=== PATIENT | female | born 1965 | race Caucasian/White ===

== ENCOUNTER 2020-12-19 14:43 | Emergency (ER) | payer BC ==
[~2020-12-19] VITALS: Ht 157.5 cm; Wt 84.4 kg
[2020-12-19] MEDS ORDERED: SODIUM CHLORIDE 0.9% 50ML 50 ML ONE (15:43)
[2020-12-19] MEDS ORDERED: IOPAMIDOL 370 MG/ML 200 ML INFUS..BTL INJ ONE (15:43)
== END 2020-12-19 16:51 | disposition home or self-care (01) ==
LOC: FSED 15:15
DX: R10.32 Left lower quadrant pain (principal); N61.1 Abscess of the breast and nipple; K57.32 Diverticulitis of large intestine without perforation or abscess without bleeding; E11.9 Type 2 diabetes mellitus without complications; E03.9 Hypothyroidism, unspecified
CPT/HCPCS: 74177; 80053; 81003; 85025; 99284; Q9967

== ENCOUNTER → 2020-12-24 | Outpatient (CLI) | payer BC | LOC: WCC 08:57 | PROVIDERS: ATTEND Plastic Surgery | DX: T81.89XA Other complications of procedures, not elsewhere classified, initial encounter (principal); Y83.8 Other surgical procedures as the cause of abnormal reaction of the patient, or of later complication, without mention of misadventure at the time of the procedure; E11.65 Type 2 diabetes mellitus with hyperglycemia; D50.9 Iron deficiency anemia, unspecified; E03.8 Other specified hypothyroidism; I95.9 Hypotension, unspecified; Q61.3 Polycystic kidney, unspecified ==

== ENCOUNTER → 2020-12-27 | Outpatient (CLI) | payer BC ==
[~2020-12-27] MED LIST: LIDOCAINE VISC 2% SOLN 15 ML UDC ONE
== END ==
LOC: WCC 13:34
PROVIDERS: ATTEND Family Medicine Adult Medicine
DX: T81.89XA Other complications of procedures, not elsewhere classified, initial encounter (principal); Y83.8 Other surgical procedures as the cause of abnormal reaction of the patient, or of later complication, without mention of misadventure at the time of the procedure; E11.65 Type 2 diabetes mellitus with hyperglycemia; D50.9 Iron deficiency anemia, unspecified; Q61.3 Polycystic kidney, unspecified; E03.8 Other specified hypothyroidism; I95.9 Hypotension, unspecified
CPT/HCPCS: 36415; 82948; 87071; 87075; 87205

== ENCOUNTER → 2020-12-31 | Outpatient (CLI) | payer BC | LOC: WCC 09:49 | PROVIDERS: ATTEND Family Medicine Adult Medicine | DX: T81.89XA Other complications of procedures, not elsewhere classified, initial encounter (principal); Y83.8 Other surgical procedures as the cause of abnormal reaction of the patient, or of later complication, without mention of misadventure at the time of the procedure; E11.65 Type 2 diabetes mellitus with hyperglycemia; Q61.3 Polycystic kidney, unspecified; I95.9 Hypotension, unspecified; D50.9 Iron deficiency anemia, unspecified; E03.8 Other specified hypothyroidism ==

== ENCOUNTER → 2021-01-03 | Outpatient (CLI) | payer BC | LOC: WCC 13:04 | PROVIDERS: ATTEND Family Medicine Adult Medicine | DX: T81.89XA Other complications of procedures, not elsewhere classified, initial encounter (principal); Y83.8 Other surgical procedures as the cause of abnormal reaction of the patient, or of later complication, without mention of misadventure at the time of the procedure; E11.65 Type 2 diabetes mellitus with hyperglycemia; Q61.3 Polycystic kidney, unspecified; D50.9 Iron deficiency anemia, unspecified; I95.9 Hypotension, unspecified; E03.8 Other specified hypothyroidism ==

== ENCOUNTER → 2021-01-07 | Outpatient (CLI) | payer BC | LOC: WCC 08:23 | PROVIDERS: ATTEND Family Medicine Adult Medicine | DX: T81.89XA Other complications of procedures, not elsewhere classified, initial encounter (principal); Y83.8 Other surgical procedures as the cause of abnormal reaction of the patient, or of later complication, without mention of misadventure at the time of the procedure; E11.65 Type 2 diabetes mellitus with hyperglycemia; Q61.3 Polycystic kidney, unspecified; I95.9 Hypotension, unspecified; D50.9 Iron deficiency anemia, unspecified; E03.8 Other specified hypothyroidism ==

== ENCOUNTER → 2021-01-10 | Outpatient (CLI) | payer BC ==
[2021-01-10 17:14] LABS: MEAN CORPUSCULAR HEMOGLOBIN 25.6 pg (28-32); MEAN CORPUSCULAR HGB CONC 30.8 g/dL (31-35); MEAN CORPUSCULAR VOLUME 83.3 fL (81-99); PLATELET COUNT 195 x10e3/uL (140-360); RED BLOOD COUNT 4.68 x10e6/uL (3.6-5.1); RED CELL DISTRIBUTION WIDTH 19.9 % (11.7-14.4)
[2021-01-10 17:30] LABS: ALBUMIN 3.8 g/dL (3.5-5.0); ALBUMIN/GLOBULIN RATIO 0.8 (0.8-2.0); ANION GAP 12.9 mmol/L (8-16); CALCIUM 9.5 mg/dL (8.4-10.2); CREATININE, SERUM 0.87 mg/dL (0.57-1.11); POTASSIUM 3.9 mmol/L (3.5-5.1)
[2021-01-10 20:37] LABS: LYMPHOCYTES % (MANUAL) 48 % (19-48); MONOCYTES % (MANUAL) 13 % (3.4-9.0); NEUTROPHILS % (MANUAL) 39 % (40-74)
[2021-01-10 20:38] LABS: PLATELET ESTIMATE ADEQUATE
[2021-01-10 20:39] LABS: PLATELET MORPHOLOGY COMMENT NORMAL; RBC MORPHOLOGY COMMENT NORMAL
== END ==
LOC: WCC 14:08
PROVIDERS: ATTEND Family Medicine Adult Medicine
DX: T81.89XA Other complications of procedures, not elsewhere classified, initial encounter (principal); Y83.8 Other surgical procedures as the cause of abnormal reaction of the patient, or of later complication, without mention of misadventure at the time of the procedure; E11.65 Type 2 diabetes mellitus with hyperglycemia; D50.9 Iron deficiency anemia, unspecified; Q61.3 Polycystic kidney, unspecified; E03.8 Other specified hypothyroidism; I95.9 Hypotension, unspecified
CPT/HCPCS: 36415; 80053; 83036; 84134; 85007; 85027; 87071; 87075; 87205

== ENCOUNTER → 2021-01-14 | Outpatient (CLI) | payer BC | LOC: WCC 08:59 | PROVIDERS: ATTEND Family Medicine Adult Medicine | DX: T81.89XA Other complications of procedures, not elsewhere classified, initial encounter (principal); Y83.8 Other surgical procedures as the cause of abnormal reaction of the patient, or of later complication, without mention of misadventure at the time of the procedure; E11.65 Type 2 diabetes mellitus with hyperglycemia; Q61.3 Polycystic kidney, unspecified; D50.9 Iron deficiency anemia, unspecified; I95.9 Hypotension, unspecified; E03.8 Other specified hypothyroidism ==

== ENCOUNTER → 2021-01-17 | Outpatient (CLI) | payer BC | LOC: WCC 09:41 | PROVIDERS: ATTEND Family Medicine Adult Medicine | DX: T81.89XA Other complications of procedures, not elsewhere classified, initial encounter (principal); Y83.8 Other surgical procedures as the cause of abnormal reaction of the patient, or of later complication, without mention of misadventure at the time of the procedure; E11.65 Type 2 diabetes mellitus with hyperglycemia; D50.9 Iron deficiency anemia, unspecified; I95.9 Hypotension, unspecified; E03.8 Other specified hypothyroidism; Q61.3 Polycystic kidney, unspecified ==

== ENCOUNTER → 2021-01-21 | Outpatient (CLI) | payer BC | LOC: WCC 09:35 | PROVIDERS: ATTEND Family Medicine Adult Medicine | DX: T81.89XA Other complications of procedures, not elsewhere classified, initial encounter (principal); Y83.8 Other surgical procedures as the cause of abnormal reaction of the patient, or of later complication, without mention of misadventure at the time of the procedure; E11.65 Type 2 diabetes mellitus with hyperglycemia; D50.9 Iron deficiency anemia, unspecified; Q61.3 Polycystic kidney, unspecified; I95.9 Hypotension, unspecified; E03.8 Other specified hypothyroidism ==

== ENCOUNTER → 2021-01-24 | Outpatient (CLI) | payer BC | LOC: WCC 09:22 | PROVIDERS: ATTEND Family Medicine Adult Medicine | DX: T81.89XA Other complications of procedures, not elsewhere classified, initial encounter (principal); Y83.8 Other surgical procedures as the cause of abnormal reaction of the patient, or of later complication, without mention of misadventure at the time of the procedure; E11.65 Type 2 diabetes mellitus with hyperglycemia; Q61.3 Polycystic kidney, unspecified; D50.9 Iron deficiency anemia, unspecified; E03.8 Other specified hypothyroidism; I95.9 Hypotension, unspecified ==

== ENCOUNTER → 2021-01-28 | Outpatient (CLI) | payer BC | LOC: WCC 10:13 | PROVIDERS: ATTEND Family Medicine Adult Medicine | DX: T81.89XA Other complications of procedures, not elsewhere classified, initial encounter (principal); Y83.8 Other surgical procedures as the cause of abnormal reaction of the patient, or of later complication, without mention of misadventure at the time of the procedure; E11.65 Type 2 diabetes mellitus with hyperglycemia; Q61.3 Polycystic kidney, unspecified; D50.9 Iron deficiency anemia, unspecified; I95.9 Hypotension, unspecified; E03.8 Other specified hypothyroidism ==

== ENCOUNTER → 2021-01-31 | Outpatient (CLI) | payer BC | LOC: WCC 09:39 | PROVIDERS: ATTEND Family Medicine Adult Medicine | DX: T81.89XA Other complications of procedures, not elsewhere classified, initial encounter (principal); Y83.8 Other surgical procedures as the cause of abnormal reaction of the patient, or of later complication, without mention of misadventure at the time of the procedure; E11.65 Type 2 diabetes mellitus with hyperglycemia; D50.9 Iron deficiency anemia, unspecified; Q61.3 Polycystic kidney, unspecified; E03.8 Other specified hypothyroidism; I95.9 Hypotension, unspecified ==

== ENCOUNTER → 2021-02-04 | Outpatient (CLI) | payer BC | LOC: WCC 08:25 | PROVIDERS: ATTEND Family Medicine Adult Medicine | DX: T81.89XA Other complications of procedures, not elsewhere classified, initial encounter (principal); Y83.8 Other surgical procedures as the cause of abnormal reaction of the patient, or of later complication, without mention of misadventure at the time of the procedure; E11.65 Type 2 diabetes mellitus with hyperglycemia; D50.9 Iron deficiency anemia, unspecified; Q61.3 Polycystic kidney, unspecified; I95.9 Hypotension, unspecified; E03.8 Other specified hypothyroidism ==

== ENCOUNTER → 2021-02-07 | Outpatient (CLI) | payer BC | LOC: WCC 11:37 | PROVIDERS: ATTEND Family Medicine Adult Medicine | DX: T81.89XA Other complications of procedures, not elsewhere classified, initial encounter (principal); Y83.8 Other surgical procedures as the cause of abnormal reaction of the patient, or of later complication, without mention of misadventure at the time of the procedure; E11.65 Type 2 diabetes mellitus with hyperglycemia; D50.9 Iron deficiency anemia, unspecified; Q61.3 Polycystic kidney, unspecified; I95.9 Hypotension, unspecified; E03.8 Other specified hypothyroidism ==

== ENCOUNTER → 2021-02-11 | Outpatient (CLI) | payer BC | LOC: WCC 15:05 | PROVIDERS: ATTEND Family Medicine Adult Medicine | DX: T81.89XA Other complications of procedures, not elsewhere classified, initial encounter (principal); Y83.8 Other surgical procedures as the cause of abnormal reaction of the patient, or of later complication, without mention of misadventure at the time of the procedure; E11.65 Type 2 diabetes mellitus with hyperglycemia; D50.9 Iron deficiency anemia, unspecified; Q61.3 Polycystic kidney, unspecified; I95.9 Hypotension, unspecified; E03.8 Other specified hypothyroidism ==

== ENCOUNTER → 2021-02-14 | Outpatient (CLI) | payer BC | LOC: WCC 14:13 | PROVIDERS: ATTEND Family Medicine Adult Medicine | DX: T81.89XA Other complications of procedures, not elsewhere classified, initial encounter (principal); Y83.8 Other surgical procedures as the cause of abnormal reaction of the patient, or of later complication, without mention of misadventure at the time of the procedure; E11.65 Type 2 diabetes mellitus with hyperglycemia; D50.9 Iron deficiency anemia, unspecified; I95.9 Hypotension, unspecified; Q61.3 Polycystic kidney, unspecified; E03.8 Other specified hypothyroidism ==

== ENCOUNTER → 2021-02-18 | Outpatient (CLI) | payer BC | LOC: WCC 15:03 | PROVIDERS: ATTEND Family Medicine Adult Medicine | DX: T81.89XA Other complications of procedures, not elsewhere classified, initial encounter (principal); Y83.8 Other surgical procedures as the cause of abnormal reaction of the patient, or of later complication, without mention of misadventure at the time of the procedure; E11.65 Type 2 diabetes mellitus with hyperglycemia; D50.9 Iron deficiency anemia, unspecified; Q61.3 Polycystic kidney, unspecified; I95.9 Hypotension, unspecified; E03.8 Other specified hypothyroidism ==

== ENCOUNTER → 2021-02-21 | Outpatient (CLI) | payer BC | LOC: WCC 10:46 | PROVIDERS: ATTEND Family Medicine Adult Medicine | DX: T81.89XA Other complications of procedures, not elsewhere classified, initial encounter (principal); Y83.8 Other surgical procedures as the cause of abnormal reaction of the patient, or of later complication, without mention of misadventure at the time of the procedure; E11.65 Type 2 diabetes mellitus with hyperglycemia; D50.9 Iron deficiency anemia, unspecified; E03.8 Other specified hypothyroidism; I95.9 Hypotension, unspecified; Q61.3 Polycystic kidney, unspecified ==

== ENCOUNTER → 2021-02-25 | Outpatient (CLI) | payer BC | LOC: WCC 16:04 | PROVIDERS: ATTEND Family Medicine Adult Medicine | DX: T81.89XA Other complications of procedures, not elsewhere classified, initial encounter (principal); Y83.8 Other surgical procedures as the cause of abnormal reaction of the patient, or of later complication, without mention of misadventure at the time of the procedure; E11.65 Type 2 diabetes mellitus with hyperglycemia; Q61.3 Polycystic kidney, unspecified; I95.9 Hypotension, unspecified; D50.9 Iron deficiency anemia, unspecified; E03.8 Other specified hypothyroidism ==

== ENCOUNTER → 2021-02-28 | Outpatient (CLI) | payer BC | LOC: WCC 09:50 | PROVIDERS: ATTEND Family Medicine Adult Medicine | DX: T81.89XA Other complications of procedures, not elsewhere classified, initial encounter (principal); Y83.8 Other surgical procedures as the cause of abnormal reaction of the patient, or of later complication, without mention of misadventure at the time of the procedure; E11.65 Type 2 diabetes mellitus with hyperglycemia; D50.9 Iron deficiency anemia, unspecified; E03.8 Other specified hypothyroidism; I95.9 Hypotension, unspecified; Q61.3 Polycystic kidney, unspecified ==

== ENCOUNTER → 2021-03-05 | Outpatient (CLI) | payer BC | LOC: WCC 11:46 | PROVIDERS: ATTEND Family Medicine Adult Medicine | DX: T81.89XA Other complications of procedures, not elsewhere classified, initial encounter (principal); Y83.8 Other surgical procedures as the cause of abnormal reaction of the patient, or of later complication, without mention of misadventure at the time of the procedure; E11.65 Type 2 diabetes mellitus with hyperglycemia; Q61.3 Polycystic kidney, unspecified; I95.9 Hypotension, unspecified; D50.9 Iron deficiency anemia, unspecified; E03.8 Other specified hypothyroidism ==

== ENCOUNTER → 2021-03-07 | Outpatient (CLI) | payer BC | LOC: WCC 09:15 | PROVIDERS: ATTEND Family Medicine Adult Medicine | DX: T81.89XA Other complications of procedures, not elsewhere classified, initial encounter (principal); Y83.8 Other surgical procedures as the cause of abnormal reaction of the patient, or of later complication, without mention of misadventure at the time of the procedure; E11.65 Type 2 diabetes mellitus with hyperglycemia; Q61.3 Polycystic kidney, unspecified; D50.9 Iron deficiency anemia, unspecified; E03.8 Other specified hypothyroidism; I95.9 Hypotension, unspecified ==

== ENCOUNTER → 2021-03-11 | Outpatient (CLI) | payer BC | LOC: WCC 09:00 | PROVIDERS: ATTEND Family Medicine Adult Medicine | DX: T81.89XA Other complications of procedures, not elsewhere classified, initial encounter (principal); Y83.8 Other surgical procedures as the cause of abnormal reaction of the patient, or of later complication, without mention of misadventure at the time of the procedure; E11.65 Type 2 diabetes mellitus with hyperglycemia; Q61.3 Polycystic kidney, unspecified; D50.9 Iron deficiency anemia, unspecified; I95.9 Hypotension, unspecified; E03.8 Other specified hypothyroidism ==

== ENCOUNTER → 2021-03-14 | Outpatient (CLI) | payer BC | LOC: WCC 09:14 | PROVIDERS: ATTEND Family Medicine Adult Medicine | DX: T81.89XA Other complications of procedures, not elsewhere classified, initial encounter (principal); Y83.8 Other surgical procedures as the cause of abnormal reaction of the patient, or of later complication, without mention of misadventure at the time of the procedure; E11.65 Type 2 diabetes mellitus with hyperglycemia; D50.9 Iron deficiency anemia, unspecified; I95.9 Hypotension, unspecified; Q61.3 Polycystic kidney, unspecified; E03.8 Other specified hypothyroidism ==

== ENCOUNTER → 2021-03-18 | Outpatient (CLI) | payer BC | LOC: WCC 08:52 | PROVIDERS: ATTEND Family Medicine Adult Medicine | DX: T81.89XA Other complications of procedures, not elsewhere classified, initial encounter (principal); Y83.8 Other surgical procedures as the cause of abnormal reaction of the patient, or of later complication, without mention of misadventure at the time of the procedure; E11.65 Type 2 diabetes mellitus with hyperglycemia; Q61.3 Polycystic kidney, unspecified; I95.9 Hypotension, unspecified; D50.9 Iron deficiency anemia, unspecified; E03.8 Other specified hypothyroidism ==

== ENCOUNTER → 2021-03-21 | Outpatient (CLI) | payer BC | LOC: WCC 09:35 | PROVIDERS: ATTEND Family Medicine Adult Medicine | DX: T81.89XA Other complications of procedures, not elsewhere classified, initial encounter (principal); Y83.8 Other surgical procedures as the cause of abnormal reaction of the patient, or of later complication, without mention of misadventure at the time of the procedure; E11.65 Type 2 diabetes mellitus with hyperglycemia; D50.9 Iron deficiency anemia, unspecified; Q61.3 Polycystic kidney, unspecified; E03.8 Other specified hypothyroidism; I95.9 Hypotension, unspecified ==

== ENCOUNTER → 2021-03-25 | Outpatient (CLI) | payer BC | LOC: WCC 10:45 | PROVIDERS: ATTEND Family Medicine Adult Medicine | DX: T81.89XA Other complications of procedures, not elsewhere classified, initial encounter (principal); Y83.8 Other surgical procedures as the cause of abnormal reaction of the patient, or of later complication, without mention of misadventure at the time of the procedure; E11.65 Type 2 diabetes mellitus with hyperglycemia; Q61.3 Polycystic kidney, unspecified; I95.9 Hypotension, unspecified; D50.9 Iron deficiency anemia, unspecified; E03.8 Other specified hypothyroidism ==

== ENCOUNTER → 2021-03-28 | Outpatient (CLI) | payer BC | LOC: WCC 15:26 | PROVIDERS: ATTEND Family Medicine Adult Medicine | DX: T81.89XA Other complications of procedures, not elsewhere classified, initial encounter (principal); Y83.8 Other surgical procedures as the cause of abnormal reaction of the patient, or of later complication, without mention of misadventure at the time of the procedure; E11.65 Type 2 diabetes mellitus with hyperglycemia; D50.9 Iron deficiency anemia, unspecified; I95.9 Hypotension, unspecified; E03.8 Other specified hypothyroidism; Q61.3 Polycystic kidney, unspecified ==

== ENCOUNTER → 2021-04-01 | Outpatient (CLI) | payer BC | LOC: WCC 10:42 | PROVIDERS: ATTEND Family Medicine Adult Medicine | DX: T81.89XA Other complications of procedures, not elsewhere classified, initial encounter (principal); Y83.8 Other surgical procedures as the cause of abnormal reaction of the patient, or of later complication, without mention of misadventure at the time of the procedure; E11.65 Type 2 diabetes mellitus with hyperglycemia; Q61.3 Polycystic kidney, unspecified; I95.9 Hypotension, unspecified; D50.9 Iron deficiency anemia, unspecified; E03.8 Other specified hypothyroidism ==

== ENCOUNTER → 2021-04-04 | Outpatient (CLI) | payer BC | LOC: WCC 10:40 | PROVIDERS: ATTEND Family Medicine Adult Medicine | DX: T81.89XA Other complications of procedures, not elsewhere classified, initial encounter (principal); Y83.8 Other surgical procedures as the cause of abnormal reaction of the patient, or of later complication, without mention of misadventure at the time of the procedure; E11.65 Type 2 diabetes mellitus with hyperglycemia; Q61.3 Polycystic kidney, unspecified; D50.9 Iron deficiency anemia, unspecified; I95.9 Hypotension, unspecified; E03.8 Other specified hypothyroidism ==

== ENCOUNTER → 2021-04-08 | Outpatient (CLI) | payer BC | LOC: WCC 10:24 | PROVIDERS: ATTEND Family Medicine Adult Medicine | DX: T81.89XA Other complications of procedures, not elsewhere classified, initial encounter (principal); Y83.8 Other surgical procedures as the cause of abnormal reaction of the patient, or of later complication, without mention of misadventure at the time of the procedure; E11.65 Type 2 diabetes mellitus with hyperglycemia; Q61.3 Polycystic kidney, unspecified; I95.9 Hypotension, unspecified; D50.9 Iron deficiency anemia, unspecified; E03.8 Other specified hypothyroidism ==

== ENCOUNTER → 2021-04-11 | Outpatient (CLI) | payer BC | LOC: WCC 10:56 | PROVIDERS: ATTEND Family Medicine Adult Medicine | DX: T81.89XA Other complications of procedures, not elsewhere classified, initial encounter (principal); Y83.8 Other surgical procedures as the cause of abnormal reaction of the patient, or of later complication, without mention of misadventure at the time of the procedure; E11.65 Type 2 diabetes mellitus with hyperglycemia; D50.9 Iron deficiency anemia, unspecified; Q61.3 Polycystic kidney, unspecified; I95.9 Hypotension, unspecified; E03.8 Other specified hypothyroidism ==

== ENCOUNTER → 2021-04-15 | Outpatient (CLI) | payer BC | LOC: WCC 09:20 | PROVIDERS: ATTEND Family Medicine Adult Medicine | DX: T81.89XA Other complications of procedures, not elsewhere classified, initial encounter (principal); Y83.8 Other surgical procedures as the cause of abnormal reaction of the patient, or of later complication, without mention of misadventure at the time of the procedure; E11.65 Type 2 diabetes mellitus with hyperglycemia; Q61.3 Polycystic kidney, unspecified; D50.9 Iron deficiency anemia, unspecified; I95.9 Hypotension, unspecified; E03.8 Other specified hypothyroidism ==

== ENCOUNTER → 2021-04-18 | Outpatient (CLI) | payer BC | LOC: WCC 09:28 | PROVIDERS: ATTEND Family Medicine Adult Medicine | DX: T81.89XA Other complications of procedures, not elsewhere classified, initial encounter (principal); Y83.8 Other surgical procedures as the cause of abnormal reaction of the patient, or of later complication, without mention of misadventure at the time of the procedure; E11.65 Type 2 diabetes mellitus with hyperglycemia; D50.9 Iron deficiency anemia, unspecified; I95.9 Hypotension, unspecified; E03.8 Other specified hypothyroidism; Q61.3 Polycystic kidney, unspecified ==

== ENCOUNTER → 2021-04-22 | Outpatient (CLI) | payer BC | LOC: WCC 08:56 | PROVIDERS: ATTEND Family Medicine Adult Medicine | DX: T81.89XA Other complications of procedures, not elsewhere classified, initial encounter (principal); Y83.8 Other surgical procedures as the cause of abnormal reaction of the patient, or of later complication, without mention of misadventure at the time of the procedure; E11.65 Type 2 diabetes mellitus with hyperglycemia; Q61.3 Polycystic kidney, unspecified; I95.9 Hypotension, unspecified; D50.9 Iron deficiency anemia, unspecified; E03.8 Other specified hypothyroidism ==

== ENCOUNTER → 2021-04-25 | Outpatient (CLI) | payer BC | LOC: WCC 11:36 | PROVIDERS: ATTEND Family Medicine Adult Medicine | DX: T81.89XA Other complications of procedures, not elsewhere classified, initial encounter (principal); Y83.8 Other surgical procedures as the cause of abnormal reaction of the patient, or of later complication, without mention of misadventure at the time of the procedure; E11.65 Type 2 diabetes mellitus with hyperglycemia; Q61.3 Polycystic kidney, unspecified; D50.9 Iron deficiency anemia, unspecified; E03.8 Other specified hypothyroidism; I95.9 Hypotension, unspecified ==

== ENCOUNTER → 2021-04-29 | Outpatient (CLI) | payer BC | LOC: WCC 08:41 | PROVIDERS: ATTEND Family Medicine Adult Medicine | DX: T81.89XA Other complications of procedures, not elsewhere classified, initial encounter (principal); Y83.8 Other surgical procedures as the cause of abnormal reaction of the patient, or of later complication, without mention of misadventure at the time of the procedure; E11.65 Type 2 diabetes mellitus with hyperglycemia; Q61.3 Polycystic kidney, unspecified; D50.9 Iron deficiency anemia, unspecified; I95.9 Hypotension, unspecified; E03.8 Other specified hypothyroidism ==

== ENCOUNTER → 2021-05-02 | Outpatient (CLI) | payer BC | LOC: WCC 10:33 | PROVIDERS: ATTEND Family Medicine Adult Medicine | DX: T81.89XA Other complications of procedures, not elsewhere classified, initial encounter (principal); Y83.8 Other surgical procedures as the cause of abnormal reaction of the patient, or of later complication, without mention of misadventure at the time of the procedure; E11.65 Type 2 diabetes mellitus with hyperglycemia; Q61.3 Polycystic kidney, unspecified; D50.9 Iron deficiency anemia, unspecified; I95.9 Hypotension, unspecified; E03.8 Other specified hypothyroidism ==

== ENCOUNTER → 2021-05-06 | Outpatient (CLI) | payer BC | LOC: WCC 09:14 | PROVIDERS: ATTEND Family Medicine Adult Medicine | DX: T81.89XA Other complications of procedures, not elsewhere classified, initial encounter (principal); Y83.8 Other surgical procedures as the cause of abnormal reaction of the patient, or of later complication, without mention of misadventure at the time of the procedure; E11.65 Type 2 diabetes mellitus with hyperglycemia; Q61.3 Polycystic kidney, unspecified; D50.9 Iron deficiency anemia, unspecified; I95.9 Hypotension, unspecified; E03.8 Other specified hypothyroidism ==

== ENCOUNTER → 2021-05-09 | Outpatient (CLI) | payer BC | LOC: WCC 11:04 | PROVIDERS: ATTEND Family Medicine Adult Medicine | DX: T81.89XA Other complications of procedures, not elsewhere classified, initial encounter (principal); Y83.8 Other surgical procedures as the cause of abnormal reaction of the patient, or of later complication, without mention of misadventure at the time of the procedure; E11.65 Type 2 diabetes mellitus with hyperglycemia; D50.9 Iron deficiency anemia, unspecified; Q61.3 Polycystic kidney, unspecified; I95.9 Hypotension, unspecified; E03.8 Other specified hypothyroidism ==

== ENCOUNTER → 2021-05-13 | Outpatient (CLI) | payer BC | LOC: WCC 08:31 | PROVIDERS: ATTEND Family Medicine Adult Medicine | DX: T81.89XA Other complications of procedures, not elsewhere classified, initial encounter (principal); Y83.8 Other surgical procedures as the cause of abnormal reaction of the patient, or of later complication, without mention of misadventure at the time of the procedure; E11.65 Type 2 diabetes mellitus with hyperglycemia; D50.9 Iron deficiency anemia, unspecified; E03.8 Other specified hypothyroidism; Q61.3 Polycystic kidney, unspecified; I95.9 Hypotension, unspecified ==

== ENCOUNTER → 2021-05-16 | Outpatient (CLI) | payer BC | LOC: WCC 09:52 | PROVIDERS: ATTEND Family Medicine Adult Medicine | DX: T81.89XA Other complications of procedures, not elsewhere classified, initial encounter (principal); Y83.8 Other surgical procedures as the cause of abnormal reaction of the patient, or of later complication, without mention of misadventure at the time of the procedure; E11.65 Type 2 diabetes mellitus with hyperglycemia; D50.9 Iron deficiency anemia, unspecified; I95.9 Hypotension, unspecified; Q61.3 Polycystic kidney, unspecified; E03.9 Hypothyroidism, unspecified ==

== ENCOUNTER → 2021-05-30 | Outpatient (CLI) | payer BC | LOC: WCC 15:49 | PROVIDERS: ATTEND Family Medicine Adult Medicine | DX: T81.89XA Other complications of procedures, not elsewhere classified, initial encounter (principal); Y83.8 Other surgical procedures as the cause of abnormal reaction of the patient, or of later complication, without mention of misadventure at the time of the procedure; E11.65 Type 2 diabetes mellitus with hyperglycemia; D50.9 Iron deficiency anemia, unspecified; I95.9 Hypotension, unspecified; Q61.3 Polycystic kidney, unspecified; E03.8 Other specified hypothyroidism ==

== ENCOUNTER 2022-08-18 10:36 | Emergency (ER) | payer BC ==
[~2022-08-18] VITALS: Ht 157.5 cm; Wt 89.4 kg
[2022-08-18] MEDS ORDERED: PROVENTIL HFA6.7 GM INH (12:29)
[2022-08-18] MEDS ORDERED: CORICIDIN HBP1 EAC1 PO (12:30)
[2022-08-18] MEDS ORDERED: SINGULAIR10 MG PO (13:00)
[2022-08-18] MEDS ORDERED: VITAMIN C500 M6 (13:00)
[2022-08-18] MEDS ORDERED: VITAMIN B-125000 MC2 (13:00)
[2022-08-18] MEDS ORDERED: XYZAL5 MG (13:00)
[2022-08-18] MEDS ORDERED: METFORMIN HCL500 M2 PO (13:00)
[2022-08-18] MEDS ORDERED: VENLAFAXINE HCL75 MG PO (13:00)
[2022-08-18] MEDS ORDERED: WOMEN'S DAILY1 EACH (13:00)
[2022-08-18] MEDS ORDERED: LEVOTHYROXINE112 MCG PO (13:00)
== END 2022-08-18 12:55 | disposition home or self-care (01) ==
LOC: FSED 11:01
DX: R05.9 Cough, unspecified (principal); U07.1 COVID-19; J40 Bronchitis, not specified as acute or chronic; E11.9 Type 2 diabetes mellitus without complications; E03.9 Hypothyroidism, unspecified
CPT/HCPCS: 71046; 99283